=== PATIENT | male | born 1955 | race Caucasian/White ===

== ENCOUNTER 2018-07-07 00:16 | Day surgery (SDC) | payer OTHER, MEDICARE ==
[~2018-07-07] VITALS: Ht 193 cm; Wt 81.7 kg
--- NOTE | 2018-07-07 05:01 | NUR ---
07/07/18 0501 Sheets,Shakira 0453 PT ARRIVED TO PACU ON 6L VIA MASK, PT REACTIVE TO TACTILES STIMULI. PT REORINTED TO PACU. 0199 PT DENIES NAUSEA AND PAIN. PT COUGHING OFF AND ON. O2 MASK REMOVED.
--- NOTE | 2018-07-07 05:55 | NUR ---
CALL LIGHT W/IN REACH. SPOUSE @ BS. ICED WATER GIVEN.
--- NOTE | 2018-07-07 06:36 | NUR ---
INCONTIENT OF LIQUID STOOL. ASSISTED TO BR. LINENS AND GOWN CHANGED. RETURNED TO BED SAT RA 93%. DENIES DISCOMFORT.
== END 2018-07-07 07:00 | disposition home or self-care (01) ==
LOC: ED 00:16 → MS 00:17 → ED 00:17 → DS 04:15
PROVIDERS: Surgery
PROC: 0DB78ZX Excision of Stomach, Pylorus, Via Natural or Artificial Opening Endoscopic, Diagnostic (ICD-10-PCS; 2018-07-07)
PROC: 0DB38ZX Excision of Lower Esophagus, Via Natural or Artificial Opening Endoscopic, Diagnostic (ICD-10-PCS; principal; 2018-07-07 04:09)
DX: K31.7 Polyp of stomach and duodenum (principal); K21.0 Gastro-esophageal reflux disease with esophagitis; K22.10 Ulcer of esophagus without bleeding; K44.9 Diaphragmatic hernia without obstruction or gangrene; K22.2 Esophageal obstruction; F17.210 Nicotine dependence, cigarettes, uncomplicated; Z87.442 Personal history of urinary calculi
CPT/HCPCS: 71046; 80053; 83690; 85025; 86677; 96361; 96374; 96375; 99285-25; C9113; J0330; J2060; J2405; J2704; J3010; J7030; J7120

== ENCOUNTER 2020-08-17 07:06 | Emergency (ER) | payer OTHER ==
[~2020-08-17] VITALS: Ht 193 cm; Wt 81.6 kg
[2020-08-17] MEDS ORDERED: OMEPRAZOLE20 MG PO (07:21)
[2020-08-17] MEDS ORDERED: ZOFRAN4 MG PO (08:49)
[2020-08-17] MEDS ORDERED: FLOMAX0.4 MG PO (08:49)
[2020-08-17] MEDS ORDERED: HYDROCODON-ACE1 EA10 PO (08:49)
== END 2020-08-17 09:03 | disposition home or self-care (01) ==
LOC: ED 07:06
DX: N13.2 Hydronephrosis with renal and ureteral calculous obstruction (principal); Z87.442 Personal history of urinary calculi
CPT/HCPCS: 74176; 80048; 81001; 85025; 96374; 96375; 99284-25; J1885; J2270; J2405; J7030

== ENCOUNTER 2020-08-19 18:50 | Emergency (ER) | payer OTHER ==
[~2020-08-19] VITALS: Ht 193 cm; Wt 87.0 kg
[~2020-08-19 18:50] MED LIST: FLOMAX0.4 MG PO; HYDROCODON-ACE1 EA10 PO; OMEPRAZOLE20 MG PO; ZOFRAN4 MG PO
--- OUTSIDE RECORDS SUMMARY | 2020-08-19 18:52 | XMS ---
PreManage Notification: PATTI BANDA [employer] Events No recent Security Events currently on file CRITERIA MET - [facility] - 2 Visits in 30 Days CARE PROVIDERS There are no care providers on record at this time. Gagan has no Care Guidelines for this patient. [facility]12 MO.) [facility] NOTE: Visits indicate total known visits. ED/C VISIT TRACKING (12 MO.) [facility] COMPLAINT: - ABD PAIN 08/17/2020 07:06 [facility] OR TYPE: Emergency COMPLAINT: - LT SIDE KIDNEY/ABD PAIN INPATIENT VISIT TRACKING (12 MO.) No inpatient visits to display in this time frame [email or web address]
[2020-08-19] MEDS ORDERED: KETOROLAC TROME10 MG PO (22:01)
== END 2020-08-19 22:18 | disposition home or self-care (01) ==
LOC: ED 18:50
DX: N20.1 Calculus of ureter (principal); F17.200 Nicotine dependence, unspecified, uncomplicated; Z87.442 Personal history of urinary calculi
CPT/HCPCS: 80053; 81001; 83605; 85025; 96374; 99284-25; J1885; J7030

== ENCOUNTER 2022-05-03 10:17 | Emergency (ER) | payer MEDICARE ==
[~2022-05-03] VITALS: Ht 193 cm; Wt 86.5 kg
[~2022-05-03 10:17] MED LIST changes: +KETOROLAC TROME10 MG PO
--- NOTE | 2022-05-04 21:55 | EKG ---
[facility] [address] [place] [address] Signed Normal sinus rhythm Normal ECG No previous ECGs available Confirmed by Nuha Prado MD () on 05/04/2022 9:54:57 PM Electronically Signed By: NUHA PRADO MD 05/04/225 PATIENT NAME: PATTI BANDA Electrocardiogram DATE OF : 51 PHYSICIAN: NUHA PRADO MD REPORT #: [id number] REPORT IS CONFIDENTIAL AND NOT TO BE RELEASED WITHOUT AUTHORIZATION
== END 2022-05-03 13:20 | disposition home or self-care (01) ==
LOC: ED 10:17
DX: R55 Syncope and collapse (principal); K21.9 Gastro-esophageal reflux disease without esophagitis; F17.200 Nicotine dependence, unspecified, uncomplicated; Z79.899 Other long term (current) drug therapy; Z87.442 Personal history of urinary calculi
CPT/HCPCS: 36415; 80053; 84484; 85025; 93005; 93010; 99284-25